=== PATIENT | female | born 1970 | race Caucasian/White ===

== ENCOUNTER 2019-04-03 08:33 | Emergency (ER) | payer OTHER ==
[~2019-04-03] VITALS: Ht 160 cm; Wt 120.7 kg
[2019-04-03] MEDS ORDERED: SYNTHROID200 MCG PO (08:51)
[2019-04-03] MEDS ORDERED: HYZAAR 100-12.1 EACH PO (08:51)
== END 2019-04-03 11:23 | disposition home or self-care (01) ==
LOC: ER 08:33
DX: M79.662 Pain in left lower leg (principal); M79.661 Pain in right lower leg; M79.672 Pain in left foot; M79.671 Pain in right foot; R21 Rash and other nonspecific skin eruption